=== PATIENT | male | born 1960 | race Caucasian/White ===

== ENCOUNTER 2018-10-29 20:55 | Emergency (ER) | payer OTHER ==
[~2018-10-29] VITALS: Ht 175.3 cm; Wt 70.5 kg
[2018-10-29 21:03] VITALS: BP 143/65
[2018-10-29] MEDS ORDERED: clonazePAM 1mg tablet PO ONE (21:40)
== END 2018-10-29 21:45 | disposition home or self-care (01) ==
LOC: ER 20:56
DX: F41.9 Anxiety disorder, unspecified (principal); G47.00 Insomnia, unspecified
CPT/HCPCS: 99282; 99284

== ENCOUNTER 2018-10-30 03:43 | Emergency (ER) | payer OTHER ==
[~2018-10-30] VITALS: Ht 175.3 cm; Wt 75.0 kg
[2018-10-30 03:45] VITALS: BP 141/75
[2018-10-30] MEDS ORDERED: LORazepam 1 MG tablet PO ONE (03:50)
--- NOTE | 2018-10-30 04:49 | NUR ---
pt sleeping on [place] [address]
== END 2018-10-30 06:08 | disposition home or self-care (01) ==
LOC: ER 03:44
DX: F41.9 Anxiety disorder, unspecified (principal); F41.0 Panic disorder [episodic paroxysmal anxiety]; F12.90 Cannabis use, unspecified, uncomplicated
CPT/HCPCS: 93005; 99284

== ENCOUNTER 2018-10-30 09:31 | Emergency (ER) | payer OTHER | END 2018-10-30 10:05 | disposition left against medical advice (07) | LOC: ER 09:31 | DX: R41.0 Disorientation, unspecified (principal); Z53.21 Procedure and treatment not carried out due to patient leaving prior to being seen by health care provider ==